=== PATIENT | female | born 1960 | race Caucasian/White ===

== ENCOUNTER → 2025-08-04 | Outpatient (CLI) | payer OTHER ==
[~2025-08-04] MED LIST: ALBU90OI INH; ALPR.5 PO; ASCO250CH PO; Cyclobenzaprine5 MG PO; ESCI20 PO; ESCI5; FERSU250ER PO; FURO40 PO; HYDACE5 PO; LAMO100; LITH450ER; METF500 PO; MULVITMINE PO; NAPR250; NAPR500 PO; Naprosyn375 MG PO; POTA10T PO; QUET200; QUET200 PO; QUET25; QUET300 PO; RANI150; RANI150 PO; SPIHYD PO; TRAM50; VIT D SL; VITAMIN B12 PO; ZIPR80
[2025-08-04 18:11] LABS: BASOPHILS ABSOLUTE AUTO 0.03 K/mm3 (0.00-0.23); BASOPHILS PERCENT AUTO 1 % (0-2); EOSINOPHILS ABSOLUTE AUTO 0.15 K/mm3 (0.00-0.68); EOSINOPHILS PERCENT AUTO 3 % (0-6); Hematocrit 39.9 % (33.0-51.0); Hemoglobin 12.2 g/dL (11.5-16.0); IMMATURE GRAN ABSOLUTE AUTO 0.01 K/mm3 (0.00-0.10); IMMATURE GRAN PERCENT AUTO 0 % (0-1); LYMPHOCYTES ABSOLUTE AUTO 1.74 K/mm3 (0.84-5.20); LYMPHOCYTES PERCENT AUTO 31 % (21-46); MONOCYTES ABSOLUTE AUTO 0.45 K/mm3 (0.16-1.47); MONOCYTES PERCENT AUTO 8 % (4-13); Mean Corpuscular HGB Conc 30.6 g/dL (31.5-36.5); Mean Corpuscular Volume 85 fL (80-100); NEUTROPHILS ABSOLUTE AUTO 3.20 K/mm3 (1.96-9.15); NEUTROPHILS PERCENT AUTO 57 % (41-73); NRBC ABSOLUTE 0.00 K/mm3 (0.00-0.02); NRBC Auto 0.0 /100 WBC (0.0-0.2); Platelet Count 253 K/mm3 (150-400); RDW Coefficient Variation 16.2 % (11.7-14.2); RDW Standard Deviation 50.6 fL (35.1-46.3)
[2025-08-04 19:46] LABS: Alanine Aminotransfer (ALT/SGP 39 U/L (12-78); Albumin, Blood 3.7 g/dL (3.4-5.0); Albumin/Globulin Ratio 1.1 (0.8-1.8); Amylase, Blood 69 U/L (25-115); Anion Gap 9 mmol/L (3-11); Aspartate Aminotrans (AST/SGOT 26 U/L (12-37); Bilirubin, Total 0.3 mg/dL (0.1-1.0); Blood Urea Nitrogen 15 mg/dL (8-24); CHOL/HDL RATIO 3.6; CO2, Blood 24 mmol/L (21-32); Calcium, Blood 9.0 mg/dL (8.5-10.1); Chloride, Blood 109 mmol/L (98-108); Cholesterol 130 mg/dL (50-200); Creatinine, Blood 0.68 mg/dL (0.40-1.00); Globulin, Blood 3.3 g/dL (2.2-4.0); Glucose, Blood 75 mg/dL (70-99); HDL Cholesterol 36 mg/dL (>39); LDL/HDL RATIO 1.8; Low Density Lipoprotein Chol 66 mg/dL (0-110); Potassium, Blood 4.0 mmol/L (3.5-5.5); Sodium, Blood 138 mmol/L (136-145); Thyroid Stimulating Hormone 1.710 uIU/mL (0.360-4.800); Total Protein, Blood 7.0 g/dL (6.4-8.2); Triglycerides 139 mg/dL (30-160); Very Low Density Lipoprot Chol 27 mg/dL (6-32)
== END ==
LOC: LAB 14:45 → LAB SHORT 14:45
PROVIDERS: Nurse Practitioner Family
DX: Z51.81 Encounter for therapeutic drug level monitoring (principal); Z79.899 Other long term (current) drug therapy
CPT/HCPCS: 80053; 80061; 82150; 83036; 83690; 83880; 84443; 85025

== ENCOUNTER → 2025-09-27 | Outpatient (CLI) | payer MEDICARE, OTHER ==
[2025-09-27 16:25] LABS: CHOL/HDL RATIO 2.9; Cholesterol 130 mg/dL (50-200); HDL Cholesterol 45 mg/dL (>39); LDL/HDL RATIO 1.4; Low Density Lipoprotein Chol 63 mg/dL (0-110); Thyroid Stimulating Hormone 1.320 uIU/mL (0.360-4.800); Triglycerides 112 mg/dL (30-160); Very Low Density Lipoprot Chol 22 mg/dL (6-32)
[2025-09-27 16:33] LABS: Bacterial Vaginosis PCR Negative (NEGATIVE); Candida Group, PCR NOT DETECTED (NOT DETECT); Candida glabrata-krusei, PCR NOT DETECTED (NOT DETECT)
== END ==
LOC: LAB SHORT 15:13 → LAB 15:13
PROVIDERS: Nurse Practitioner Family
DX: R07.9 Chest pain, unspecified (principal); N89.8 Other specified noninflammatory disorders of vagina
CPT/HCPCS: 80061; 81515; 83036; 83880; 84443; 84484; 87086